=== PATIENT | male | born 1965 | race Caucasian/White ===

== ENCOUNTER 2017-11-14 10:09 | Emergency (ER) | payer OTHER ==
[~2017-11-14] VITALS: Ht 182.9 cm; Wt 121.5 kg
[~2017-11-14 10:09] MED LIST: PERCOCET 5/31 TABLET PO; VALIUM5 MG PO
[2017-11-14 11:07] LABS: HEMATOCRIT 49.9 % (38.0-50.0); HEMOGLOBIN 18.1 G/DL (12.5-16.6); MCH 31.5 PG (29.0-34.0); MCHC 36.3 G/DL (30.0-36.0); MCV 86.8 FL (86-99); PLATELET COUNT 272 K/uL (156-360); RBC DIS.WIDTH-CV 12.1 % (11.8-14.6); RBC DIS.WIDTH-SD 38.3 % (39-53); RED BLOOD COUNT 5.75 M/uL (4.00-5.50); WHITE BLOOD COUNT 10.9 K/uL (4.1-10.2)
[2017-11-14 11:17] LABS: ALBUMIN 4.7 g/dL (3.2-4.8)
[2017-11-14 11:18] LABS: CHLORIDE 99 mEq/L (99-109); POTASSIUM 4.2 mEq/L (3.7-5.4); SODIUM 136 mEq/L (136-147)
[2017-11-14 11:20] LABS: GLUCOSE 121 mg/dL (70-99); TOTAL PROTEIN 7.6 g/dL (6.4-8.3)
[2017-11-14 11:22] LABS: TOTAL BILIRUBIN 3.1 mg/dL (0.0-1.0)
[2017-11-14 11:23] LABS: ALKALINE PHOSPHATASE 104 IU/L (3-129)
[2017-11-14 11:24] LABS: CREATININE 0.9 mg/dL (0.6-1.3); GFR ESTIMATE (CALCULATED) > 59 mL/min/ (58.99-99999)
[2017-11-14 11:25] LABS: AST (GOT) 29 IU/L (2-34); UREA NITROGEN (BUN) 12 mg/dL (9-23)
[2017-11-14 11:27] LABS: ALT (GPT) 61 IU/L (3-49)
[2017-11-14 12:25] LABS: APPEARANCE CLEAR ((CLEAR)); BILIRUBIN NEGATIVE; BLOOD NEGATIVE; COLOR AMBER ((YELLOW)); GLUCOSE (STRIP) NEGATIVE; KETONES NEGATIVE; LEUKOCYTES NEGATIVE; NITRITE NEGATIVE; PROTEIN (STRIP) 30; SPECIFIC GRAVITY 1.027 (1.000-1.030); UCUL ADDED? NO; UROBILINOGEN 0.2 MG/DL (0.2-1.0)
[2017-11-14 12:40] LABS: LIPASE 8 U/L (1.0-51.0)
[2017-11-14 14:40] LABS: DIRECT BILIRUBIN 0.8 mg/dL (0.0-0.3)
[2017-11-14] MEDS ORDERED: MOTRIN600 MG PO (16:25)
[2017-11-14] MEDS ORDERED: BENTYL20 MG PO (16:25)
[2017-11-14 16:46] VITALS: BP 136/88
== END 2017-11-14 16:48 | disposition home or self-care (01) ==
LOC: EME 10:09
DX: K80.70 Calculus of gallbladder and bile duct without cholecystitis without obstruction (principal)
CPT/HCPCS: 76705; 80053; 81003; 82248; 83690; 85027; 99281; 99284; J1885

== ENCOUNTER → 2017-11-17 | Outpatient (CLI) | payer OTHER ==
[~2017-11-17] MED LIST changes: +BENTYL20 MG PO; +MOTRIN600 MG PO
== END | disposition home or self-care (01) ==
LOC: CDC 11:20
DX: Z01.810 Encounter for preprocedural cardiovascular examination (principal); R10.11 Right upper quadrant pain
CPT/HCPCS: 93000

== ENCOUNTER 2017-12-06 07:53 | Day surgery (SDC) | payer OTHER ==
[~2017-12-06] VITALS: Ht 182.9 cm; Wt 113.4 kg
[~2017-12-06 07:53] MED LIST changes: +ADVIL200 MG PO; +PREVACID30 MG PO
[2017-12-06 08:30] VITALS: BP 158/88
[2017-12-06] MEDS ORDERED: ONDANSETRON HCL8 MG PO (12:24)
[2017-12-06] MEDS ORDERED: COLACE100 MG PO (12:24)
[2017-12-06] MEDS ORDERED: DILAUDID4 MG PO (12:24)
[2017-12-06 14:00] VITALS: BP 174/83
[2017-12-06 15:02] VITALS: BP 145/91
== END 2017-12-06 15:00 | disposition home or self-care (01) ==
LOC: SDC 07:53
PROC: 0FT44ZZ Resection of Gallbladder, Percutaneous Endoscopic Approach (ICD-10-PCS; principal; 2017-12-06)
DX: K80.10 Calculus of gallbladder with chronic cholecystitis without obstruction (principal); K22.70 Barrett's esophagus without dysplasia; K21.9 Gastro-esophageal reflux disease without esophagitis; Z80.0 Family history of malignant neoplasm of digestive organs; Z87.891 Personal history of nicotine dependence
CPT/HCPCS: 88304; J0330; J0690; J1100; J1170; J2250; J2405; J2710; J3010